=== PATIENT | female | born 1990 | race Caucasian/White ===

== ENCOUNTER 2021-12-29 11:02 | Outpatient (CLI) | payer OTHER, SELFPAY ==
[2021-12-29 13:14] LABS: Albumin* 4.5 g/dL (3.3-5.0); Chloride* 103 mmol/L (96-114)
[2021-12-29 13:15] LABS: Potassium* 4.5 mmol/L (3.6-5.1); Sodium* 137 mmol/L (135-149)
[2021-12-29 13:17] LABS: Alkaline Phosphatase* 68 U/L (40-150); Aspartate Amino Transferase* 25 U/L (12-35); Bilirubin Total* 0.6 mg/dL (0.1-1.5); Blood Urea Nitrogen* 15 mg/dL (5-24); Carbon Dioxide* 27 mmol/L (20-32); Cholesterol* 227 mg/dL (90-199); Creatinine* 0.7 mg/dL (0.5-1.5); Estimated Glomerular Filt Rate 117 ml/min; Total Protein* 7.3 g/dL (6.0-8.3)
[2021-12-29 13:18] LABS: Alanine Aminotransferase* 12 U/L (4-35); Calcium* 9.3 mg/dL (8.4-10.6); Glucose* 94 mg/dL (60-115); HDL Cholesterol* 72 mg/dL (>=50); LDL Cholesterol Calculated 138 mg/dL (<100); Triglycerides* 83 mg/dL (40-149)
== END 2021-12-29 11:03 | disposition home or self-care (01) ==
PROVIDERS: PCP Family Medicine; Visit Provider Family Medicine
DX: Z01.419 Encounter for gynecological examination (general) (routine) without abnormal findings (principal); R53.83 Other fatigue; F41.1 Generalized anxiety disorder; R45.4 Irritability and anger; Z13.6 Encounter for screening for cardiovascular disorders
CPT/HCPCS: 80053; 80061; 84443

== ENCOUNTER 2022-02-25 10:10 | Outpatient (CLI) | payer OTHER, SELFPAY ==
[2022-02-25 12:29] LABS: Hepatitis B Surface Antigen* Negative (Negative)
[2022-02-25 12:37] LABS: HIV 1/2/P24 Combo Screen* Negative (Negative)
[2022-02-25 12:46] LABS: Hepatitis C Virus Antibody* Negative (Negative)
[2022-02-26 13:53] LABS: Rapid Plasma Reagin (RPR) Non Reactive (Non Reactive)
[2022-02-27 02:34] LABS: Rubella Antibody IgG 13.2 IU/mL
== END 2022-02-25 10:11 | disposition home or self-care (01) ==
PROVIDERS: PCP Family Medicine; Visit Provider Advanced Practice Midwife
DX: Z34.81 Encounter for supervision of other normal pregnancy, first trimester (principal); Z3A.08 8 weeks gestation of pregnancy
CPT/HCPCS: 76817; 86592; 86703; 86762; 86787; 86803; 86850; 86900; 86901; 87086; 87340

== ENCOUNTER 2022-05-06 12:44 | Outpatient (CLI) | payer OTHER, SELFPAY ==
--- NOTE | 2022-05-06 13:00 | CRLHL7_ITS ---
For Patients: As a result of the Century Cures Act, medical imaging exams and procedure reports are released immediately into your electronic medical record. You may view this report before your referring provider. If you have questions, please contact your health care provider. INDICATION: Evaluate anatomy. COMPARISON: 02/25/2022 TECHNIQUE: Real time hoskins scale imaging of the fetus was performed as well as color Doppler analysis of the umbilical vessels. FINDINGS: Sonographic imaging demonstrates a single living intrauterine gestation. Fetus demonstrates a regular cardiac rate of 167 beats per minute. Fetus has a transverse position, head maternal right. The placenta lies posterior. Low-lying placenta located 1.8cm from the internal cervical os on transvaginal imaging. Amniotic fluid volume appears normal. Single deepest vertical pocket: 4.0 cm. The cervix is closed and measures 4.6 cm in length. The composite ultrasound gestational age is calculated at 19w 0d with an estimated sonographic due date of 09.30.22. The estimated weight is 285 grams which lies at the 64th %. The following biometric measurements were obtained: Biparietal diameter: 4.1 cm / 18w 3d 28th% Head circumference: 16.2 cm / 19w 0d 40th% Abdominal circumference: 14.3 cm / 19w 5d 68th% Femur length: 3.0 cm / 19w 1d 46th% The HC/AC ratio measures: 1.13 range (1.09-1.26) On anatomic survey, there is a normal appearance of the cerebral ventricles, cavum septi pellucidi, cisterna magna and cerebellum. The nose, lips, and facial profile appear normal. The cervical, thoracic and lumbar spine are well visualized and appear normal. There is a normal four-chamber heart view and the left and right ventricular outflow tracts appear normal. The diaphragm and stomach appear normal. The kidneys and bladder also appear normal. There is a normal three-vessel cord and cord insertion site. The four extremities appear normal. IMPRESSION: Concordance of clinical and sonographic dating. No intrinsic abnormalities noted on anatomic survey. Low-lying posterior placenta located 1.8cm from the internal cervical os. Dictated by Mahad Jorgensen MD @ 05/06/2022 2:33:22 PM (Electronically Signed)
== END 2022-05-06 12:45 | disposition home or self-care (01) ==
LOC: US 12:45
PROVIDERS: PCP Family Medicine; Visit Provider Obstetrics & Gynecology
DX: Z34.92 Encounter for supervision of normal pregnancy, unspecified, second trimester (principal); O44.42 Low lying placenta NOS or without hemorrhage, second trimester; Z3A.19 19 weeks gestation of pregnancy
CPT/HCPCS: 76805; 76817

== ENCOUNTER 2022-07-07 12:04 | Outpatient (CLI) | payer OTHER, BC, SELFPAY | END 2022-07-07 12:05 | disposition home or self-care (01) | PROVIDERS: PCP Family Medicine; Visit Provider Obstetrics & Gynecology | DX: O44.40 Low lying placenta NOS or without hemorrhage, unspecified trimester (principal) | CPT/HCPCS: 86592 ==

== ENCOUNTER 2022-07-07 12:07 | Outpatient (CLI) | payer OTHER, BC, SELFPAY ==
--- NOTE | 2022-07-07 12:15 | CRLHL7_ITS ---
For Patients: As a result of the Century Cures Act, medical imaging exams and procedure reports are released immediately into your electronic medical record. You may view this report before your referring provider. If you have questions, please contact your health care provider. INDICATION: Follow up low-lying placenta. TECHNIQUE: Limited transabdominal obstetrical ultrasound. FINDINGS: Single living intrauterine in transverse presentation with head toward the maternal left side. Posterior placenta. heart rate 150 beats per minute. Normal amniotic fluid. Single deepest pocket measurement 18.5 cm. Amniotic fluid volume index is normal at 18.4 cm. Close cervix measuring 4.9 cm. The placental tip is 4 cm from the cervix. IMPRESSION: Closed cervix. Posterior placenta with its tip 4 cm from the cervix. Single living intrauterine in transverse presentation. Dictated by Trenton Manriquez MD @ 07/07/2022 1:51:16 PM (Electronically Signed)
== END 2022-07-07 12:08 | disposition home or self-care (01) ==
PROVIDERS: PCP Family Medicine; Visit Provider Obstetrics & Gynecology
DX: O44.42 Low lying placenta NOS or without hemorrhage, second trimester (principal)
CPT/HCPCS: 76816

== ENCOUNTER 2022-09-02 10:45 | Outpatient (CLI) | payer OTHER, BC, SELFPAY | END 2022-09-02 10:46 | disposition home or self-care (01) | LOC: NFLDREF 09-04 09:16 | PROVIDERS: PCP Family Medicine; Referring Provider Family Medicine; Visit Provider Obstetrics & Gynecology | DX: Z34.93 Encounter for supervision of normal pregnancy, unspecified, third trimester (principal); Z3A.35 35 weeks gestation of pregnancy | CPT/HCPCS: 76816; 87081; 87653 ==

== ENCOUNTER 2022-09-21 03:30 | Inpatient (IN) | payer OTHER, BC, SELFPAY ==
[2022-09-21] VITALS (24 sets, daily range): BP systolic 115–161; BP diastolic 73–100; PULSE 57–106; RESP 16–18; TEMP 36.1–37.1; O2SAT 97–100; BMI 27.6
[2022-09-21 02:53] LABS: Basophils Absolute Auto 0.03 K/uL (0.00-0.30); Basophils Percent Auto 0.3 % (0.0-3.0); Eosinophils Absolute Auto 0.08 K/uL (0.00-0.50); Eosinophils Percent Auto 0.9 % (0.0-7.0); Hematocrit 33.1 % (33.0-51.0); Hemoglobin* 10.8 gm/dL (12.0-16.0); Immature Granulocytes Abs Auto 0.04 K/uL (0.00-0.30); Immature Granulocytes Pct Auto 0.5 %; Lymphocytes Percent Auto 25.1 % (20-44); Mean Corpuscular HGB Conc 33 gm/dL (32-36); Mean Corpuscular Hemoglobin 31 pg (26-34); Mean Corpuscular Volume 94 fL (80-100); Monocytes Percent Auto 8.8 % (0.0-11.0); Neutrophils Absolute Auto 5.63 K/uL (1.7-7.0); Neutrophils Percent Auto 64.4 % (42.0-72.0); Platelet Count* 258 K/uL (140-440); RDW Coefficient of Variation % 13.2 % (11.5-15.5); Red Blood Count 3.54 m/uL (4.00-5.20); White Blood Count* 8.75 K/uL (4.50-11.00)
[2022-09-21 02:56] LABS: Slide Review Reflex No
[2022-09-21 03:10] LABS: Fibrinogen* 382 mg/dL (200-450)
[2022-09-21] MEDS: LACTATED RINGERS 1000 ML 1,000 ML 125 ML IV ×2 (06:40→09:08)
[2022-09-21] MEDS: AMPICILLIN 2 GM in 0.9 % SODIUM CHLORIDE Mini-bag 100 ML IVPB (06:41)
[2022-09-21] MEDS: OXYTOCIN 30 unit/500 ML in NS 30 UNIT/500 ML BAG IVPB (06:43)
[2022-09-21] MEDS: CEFAZOLIN 2 GM INJ IVP (07:20)
--- NOTE | 2022-09-21 08:05 | SUR.OPER ---
PATIENT BROUGHT TO OR #5 PER CART FOR EMERGENT .? Patient positioned supine on OR #5 bed.? The perioperative?team supported arms bilaterally on arm boards.? Final approval of positioning by surgeon.? FETUS IN DISTRESS, NO TIME OUT PRIOR TO INCISION. VENOUS AND ARTERIAL BLOOD GASSES SENT W/W. MG HANSEN.
--- NOTE | 2022-09-21 08:24 | W.PM.LDBA ---
Subjective History of Present Illness Date Seen: 09/21/22 Narrative: Patient is being admitted to Labor and Delivery for VTOLAC. She is a 31 year old at 38 5/7 weeks gestation. Her full history and physical was dictated by Dr. JOHN on 09/15/22. Please see this for details. Patient came in this morning for evaluation after experiencing episode of vaginal bleeding at home. States that she woke up and went to the bathroom and saw bright red blood, she placed a pad on and she then states that she filled up the pad with menses like bleeding, denies experiencing pain. Upon evaluation at L&D, there was brown discharge, no active bright red bleeding seen. NST category 1. Cervix was found 2cm dilated and palpated membranes. Patient was admitted for IOL in the setting of concerning episode of vaginal bleeding in third trimester (that was stable), patient desiring VTOLAC. Comments: 1. Previous c/s for breech presentation at term. Followed by 2 successful 's Desires Tolac Consent signed: 06/02/2022 USN @ 36 weeks for EFW 09/02/22: Vtx. SDP 3.9cm.? EFW 2827 g, 6 lb 4 oz, 52%.? BPD 9%, HC 16%, AC 89%, FL 10%. 2. Hx of Pre-eclampsia, no medications (dx'd off liver enzymes) W/ 2nd child; possibly related to placenta abnormality not true Pre-e 3. 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 Low-lying placenta at 20 weeks. RESOLVED, 3/1 Repeat US at 28 week: 4.0 cm from internal os 6. Anxiety/Depression Zoloft 50 mg, recently decreased prior to Increased dosing made her extremely irritable Considering ADHD testing after delivery 7. GBS (+): ampicillin in labor. COVID: fully vaccinated, one booster Flu: 02/25/2022 Tdap: 07/21/2022 OB - Problem Based A/P Additional Plan (1) Desires (vaginal after ) trial: Status: Acute Plan 1. Patient admitted for IOL in the setting of VTOLAC. intolerance of labor, code white called at 7:14 am. Please see OP note for additional details. OB Result Labs Labs: Hemoglobin: 10.8 Platelets 258 Fibrinogen: 382 OB Exam Physical Exam Vital signs: Temp Pulse BP Pulse Ox 98.8 F 58 L 127/82 99 09/21/22 02:20 09/21/22 04:14 09/21/22 04:14 09/21/22 07:12 Detailed Labor and Delivery Exam Patient Gravid: Yes Dilation (cm): 2 Effacement (%): 60 Cervix position: mid Consistency: medium Tachysystole: No Contraction intensity: Mild Fetus (Single) Station: -1 Amniotic Membrane Status: intact Heart Rate Baseline: 120 Monitor Accelerations: Present Monitor Decelerations: Episodic Final Inspection Supervisor Variability: Moderate (6-25)
--- NOTE | 2022-09-21 08:28 | W.ANESCHARGE ---
Anesthesia Charges Start Date/Time Anesthesia Start Date: 09/21/22 Anesthesia Start Time: 07:17 Stop Date/Time Anesthesia Stop Date: 09/21/22 Anesthesia Stop Time: 08:20 Summary Emergency: STABLE HELPER
[2022-09-21] MEDS: fentaNYL 100 MCG/2 ML inj 50 MCG IVP ×2 (08:36→08:41)
[2022-09-21 09:22] LABS: Basophils Percent Auto 0.1 % (0.0-3.0); Eosinophils Percent Auto 0.2 % (0.0-7.0); Hematocrit 36.3 % (33.0-51.0); Hemoglobin* 11.6 gm/dL (12.0-16.0); Immature Granulocytes Pct Auto 0.3 %; Lymphocytes Percent Auto 11.5 % (20-44); Mean Corpuscular HGB Conc 32 gm/dL (32-36); Mean Corpuscular Hemoglobin 30 pg (26-34); Mean Corpuscular Volume 95 fL (80-100); Monocytes Percent Auto 3.3 % (0.0-11.0); Neutrophils Percent Auto 84.6 % (42.0-72.0); Platelet Count* 248 K/uL (140-440); RDW Coefficient of Variation % 13.1 % (11.5-15.5); Red Blood Count 3.82 m/uL (4.00-5.20); White Blood Count* 11.66 K/uL (4.50-11.00)
[2022-09-21 09:25] LABS: Slide Review Reflex No
--- NOTE | 2022-09-21 09:34 | P.NB_ITS ---
Nerve Block Nerve Block Time Seen by Provider: 08:13 Date Seen: 09/21/22 Type of block requested by surgeon for post-operative analgesia: TAP Side: bilateral Time out performed: Yes Verification of patient name: Yes Verification of date of : Yes Site marking: site marked Name of person performing procedure: Tyrell Continuous monitoring Was continuous monitoring of O2 sat, B/P, youth nutritional monitor, recorded every 15 minutes?: Yes Procedure Checklist: sterile prep, needles and gloves Ultrasound guided. Images saved: Yes Medications given in 5ml increments after negative aspiration: Marcaine %: 0.25 mL: 30 Needle gauge: 20 and Exparel mL: 10 Patient tolerated procedure well: Yes Additional comments: Needle noted adjacent to nerve Block Charges Block Charge (with Pro Fee): TAP Bilateral Use of Ultrasound Machine for Block: Yes- US Guidance/pain block
--- NOTE | 2022-09-21 09:34 | W.ANESCHARGE ---
Anesthesia Charges Start Date/Time Anesthesia Start Date: 09/21/22 Anesthesia Start Time: 07:17 Stop Date/Time Anesthesia Stop Date: 09/21/22 Anesthesia Stop Time: 08:20 Summary Emergency: MDA
[2022-09-21 09:36] LABS: Partial Thromboplastin Time* 25 Seconds (23-33)
[2022-09-21 09:37] LABS: Fibrinogen* 384 mg/dL (200-450)
[2022-09-21 10:28] LABS: Creatinine* 0.7 mg/dL (0.5-1.5); Est. Creatinine Clearance* 111.16; Estimated Glomerular Filt Rate 117 ml/min
[2022-09-21 10:29] LABS: Alanine Aminotransferase* 16 U/L (4-35); Aspartate Amino Transferase* 27 U/L (12-35); Blood Urea Nitrogen* 10 mg/dL (5-24)
--- NOTE | 2022-09-21 10:32 | PM.OBPRCCS ---
Procedure Pre-op/Post-op diagnoses: Pre-Op/Post-Op Diagnoses Preop diagnosis: 1. Intrauterine at 38 5/7 weeks 2. Nonreassuring heart rate status, remote from delivery 3. Suspected placental abruption 4. Previous x1, desiring vaginal trial of labor Postop diagnosis: 1. Same, not delivered Procedure Done: Global Procedure Details: Procedures Operation Date: 09/21/22 07:45 Actual Procedure Side Surgeon p Section Duyen Hammond MD [place] Operator: Kourtney York Estimated blood loss (mL): 600 Disposition: PACU Anesthesia type: General Complications: None Narrative: NAME OF PROCEDURE: Repeat low transverse section. ANESTHESIA: General endotracheal anesthesia. COMPLICATIONS: None. ESTIMATED BLOOD LOSS: 600 mL. DRAINS: Evangelista to gravity. As detonator maker provider I was called to be notified that L&D team was calling a code white on patient, this was called at 0714, I arrived at OR at 0717 and patient was in the OR bed, external monitor was showing FHR in the 130s, maternal heart rate was also in the 130s. Patient had already been evaluated by my partners Dr. Nora Baker and Dr. Slater who were in hospital at that time due to scheduled OR cases. Anesthesia was in the room and ready to proceed with general anesthesia. Due to inability to confidently tell if there was normal FHR, code white scenario in a very high risk patient (coming in with third trimester bleeding-significant, previous history of C/S x1, suspected placental abruption and cervix only 2cm dilated) recommendation was given to proceed with emergency delivery. FINDINGS: Live-born male infant, cephalic presentation, Apgars 7 and 8 at 1 and 5 minutes respectively. weight pending. Normal appearing uterus, tubes, and ovaries. Small dark blood clots seen on posterior uterine wall, no evident large blood clot on the placenta. PROCEDURE: Splash of Betadine was placed over the abdomen. She was draped in the dorsal supine position with a leftward tilt. Anesthesia secured airway and a Pfannenstiel skin incision was made with a scalpel along the line of the patient's previous Pfannenstiel scar. This incision was carried down to the underlying layer of fascia with the scalpel. The fascia was incised in the midline and the incision extended laterally. The rectus muscles were then in the midline. The lower uterine segment was then incised in a transverse fashion with the scalpel. Upon entry into the uterus, minimal amount of clear amniotic fluid was noted. The uterine incision was extended cephalo caudally with blunt finger fractionation. The 's head was delivered atraumatically, 2 nuchal cords reduced, followed by the remainder of the infant's body. The cord was doubly clamped and cut, and the infant was handed off the field to [facility] for evaluation. The placenta was delivered spontaneously with umbilical cord traction and fundal massage. The uterus was exteriorized and was cleared of all clots and debris. The uterine incision was reapproximated in a running locking fashion with a 0 Vicryl suture. A 2nd layer of the same suture was used to imbricate in horizontal fashion. The uterus was returned to the abdomen and small bleeding vessels from hysterotomy were managed with Chromic 2-0 in a figure of 8 manner, hemostasis secured. The gutters were irrigated and suctioned. All instruments and retractors were removed. Tika irrigated at the hysterotomy for further hemostasis. The subfascial tissues were carefully inspected and hemostasis assured. The fascia was reapproximated in a running fashion with a looped 0 Vicryl suture. The subcutaneous tissues were copiously irrigated. Hemostasis was assured. The subcutaneous fat layer was reapproximated with interrupted sutures of 3-0 Vicryl. The skin was closed in a subcuticular fashion with 4-0 Monocryl. LiquiBand and dressing were applied. The patient tolerated the procedure well. Sponge, lap, needle, and instrument counts were reported as correct x2. The patient was taken to the recovery room, awake, and in stable condition. She did receive 2 grams of IV Ancef preoperatively, 1g of TXA after placenta delivered. .
[2022-09-21] MEDS: SODIUM CHLORIDE 0.9 % (FLUSH) 10 ML SYRINGE IVF (14:04)
[2022-09-21] MEDS: KETOROLAC 30 MG/ML inj IVP ×2 (14:05→20:03)
[2022-09-21] MEDS: OXYCODONE 5 MG TABLET PO (16:16)
[2022-09-21] MEDS: ACETAMINOPHEN 500 MG TABLET 1000 MG PO (16:59)
[2022-09-21] MEDS: DOCUSATE SODIUM 100 MG CAPSULE PO (18:42)
[2022-09-22] VITALS: BP 114/74; PULSE 68; RESP 16; TEMP 36.8; O2SAT 96
[2022-09-22] MEDS: ACETAMINOPHEN 500 MG TABLET 1000 MG PO ×3 (00:50→18:06)
[2022-09-22] MEDS: OXYCODONE 5 MG TABLET PO (00:50)
[2022-09-22] MEDS: KETOROLAC 30 MG/ML inj IVP ×3 (02:04→14:19)
[2022-09-22 04:10] VITALS: BP 126/74; PULSE 68; RESP 16; TEMP 36.6; O2SAT 98
--- NOTE | 2022-09-22 07:24 | PM.OBPNCS1 ---
OB - PN: A/P Assessment and Plan (1) Desires (vaginal after ) trial: Status: Acute Plan Plan: routine postop care Comments: Assessment/Plan G 4 P 4 status post repeat , complicated by an emergency requiring general anesthesia. 1. ?Continue route PP cares 2. ?. ?May see if desired 3. ?Anticipate discharge home tomorrow or the following day per pt preference 4. Hx of depression & anxiety -continue with sertraline, is aware we can increase dose if needed -aware of options to help process trauma and for PP depression if needed 5. Hx of PP preeclampsia, BPs elevated previously. Labs also previously done, WNL. BPs now stable/WNL -will continue to monitor. OB - PN: Subj Subjective Time Seen by Provider: 07:24 Date Seen: 09/22/22 Interval history: Atiya is a 31 y.o. who was admitted to L & D for IOL for bleeding, TOLAC. ?She had a complicated by a code white requiring general anesthesia for distress. ? Patient comments: no complaints and pain well controlled [place] infant status: and doing well feeding status: exclusively Narrative: The patient feels well. ?The pain is well controlled with current medications. ?She has no new complaints. ?She is breast feeding and reports things are going well.? the patient has done well.? Vitals have been stable.? She has remained afebrile.? Has a good appetite, is tolerating a general diet. ?She is voiding without difficulty.? She is passing gas and has not had a bowel movement.? She is ambulating and denies any dizziness.? Has Small amount of rubra lochia. She is being very conscious of her mental health. Will continue her current dose of sertraline at this time, but is aware we can increase it if needed. Briefly reviewed counseling options for trauma if desired. OB - PN: Obj Exam Physical Exam: Vital signs: Temp Pulse Resp BP Pulse Ox O2 Del Method 97.8 F 68 16 126/74 98 Room Air 09/22/22 04:10 09/22/22 04:10 09/22/22 04:10 09/22/22 04:10 09/22/22 04:10 09/22/22 04:10 Narrative: VSS. Afebrile GENERAL APPEARANCE: ?normal affect, alert, no distress MOOD: ?appropriate HEENT: normocephalic, neck supple, full ROM CHEST: ?Symmetrical chest wall movement. ?Normal respiratory effort. ?Clear to auscultation HEART: ?regular rate and rhythm ABDOMEN: ?soft, non-tender. Uterine fundus is firm, at Umbilicus, Midline and is appropriate for the stage of recovery. ?Bowel sounds present. EXTREMITIES: ?normal and no edema SKIN: warm, dry. Dressing on, clean/dry/intact. No signs of infection noted. Urinary Catheter Management: Urethral: Cath placed during this visit: yes, but has since been removed by the nurse Reason for continuing: decision to DC catheter Removal date: 09/21/22 Removal time: 20:30 OB - PN: Obj Data Labs Labs: Laboratory Results - last 24 hr 09/21/22 09:11 WBC 11.66 H RBC 3.82 L Hgb 11.6 L Hct 36.3 MCV 95 MCH 30 MCHC 32 RDW Coeff of Steven 13.1 Plt Count 248 Neut % (Auto) 84.6 H Lymph % (Auto) 11.5 L Maverick % (Auto) 3.3 Eos % (Auto) 0.2 Baso % (Auto) 0.1 Neut # (Auto) 9.90 H Lymph # (Auto) 1.30 Maverick # (Auto) 0.40 Eos # (Auto) 0.00 Baso # (Auto) 0.00 APTT 25 Fibrinogen 384 BUN 10 Creatinine 0.7 Estimated Creat Clear 111.16 Estimated GFR 117 AST 27 ALT 16
[2022-09-22 09:00] VITALS: BP 120/80; PULSE 68; RESP 16; TEMP 36.6; O2SAT 98
[2022-09-22] MEDS: DOCUSATE SODIUM 100 MG CAPSULE PO (10:28)
[2022-09-22 12:01] VITALS: BP 123/75; PULSE 62; RESP 16; TEMP 36.8; O2SAT 97
[2022-09-22 16:00] VITALS: BP 106/75; PULSE 82; RESP 18; TEMP 36.6; O2SAT 98
[2022-09-22] MEDS: SERTRALINE 50 MG TABLET PO (20:23)
[2022-09-22 20:35] VITALS: BP 113/78; PULSE 68; RESP 18; TEMP 36.5; O2SAT 98
[2022-09-22] MEDS: IBUPROFEN 600 MG TABLET PO (21:43)
[2022-09-23 01:05] VITALS: BP 123/80; PULSE 67; RESP 16; O2SAT 96
[2022-09-23] MEDS: ACETAMINOPHEN 500 MG TABLET 1000 MG PO ×4 (01:08→22:22)
[2022-09-23] MEDS: IBUPROFEN 600 MG TABLET PO ×3 (04:29→20:24)
[2022-09-23 04:31] VITALS: BP 120/82; PULSE 65; RESP 16; O2SAT 97
--- NOTE | 2022-09-23 07:56 | PM.OBPNCS1 ---
OB - PN: A/P Assessment and Plan (1) Status post emergency section: Problem details: placental abruption, bradycardia Status: Acute (2) Lactating mother: Status: Acute Plan day: 2 Plan: routine postop care Comments: May see if desired. Anticipate discharge tomorrow, 09/24. OB - PN: Subj Subjective Date Seen: 09/23/22 Interval history: Atiya is a 31 y.o. who was admitted to L & D for IOL for bleeding, TOLAC. ?She had a complicated by a code white requiring general anesthesia for distress. ? Narrative: Atiya is a 31 y.o. who was admitted to L & D for induction due to 3rd episode of vaginal bleeding. ?She had an uncomplicated emergency .?The patient feels well. ?The pain is well controlled with current medications. ?She has no new complaints. ?She is breast feeding and reports things are going well.? the patient has done well.? Vitals have been stable.? She has remained afebrile.? Has a good appetite, is tolerating a general diet. ?She is voiding without difficulty.? She is passing gas and has had a bowel movement.? She is ambulating and denies any dizziness.? Has scant amount of rubra lochia. She was undecided if she wanted to discharge home today but has elected to stay. She has 3 very active boys at home. OB - PN: Obj Exam Physical Exam: Vital signs: Temp Pulse Resp BP Pulse Ox O2 Del Method 97.7 F 65 16 120/82 97 Room Air 09/22/22 20:35 09/23/22 04:31 09/23/22 04:31 09/23/22 04:31 09/23/22 04:31 09/23/22 04:31 Narrative: GENERAL APPEARANCE:? normal affect, alert, no distress MOOD:? appropriate CHEST:? clear to auscultation HEART:? regular rate and rhythm ABDOMEN:? soft, non-tender the uterine fundus is at Umbilicus, Midline and is appropriate for the stage of recovery. PERINEUM:? mild edema of the perineum EXTREMITIES:? normal and edema Incision: Healing well, no surrounding erythema, abnormal induration or discharge Urinary Catheter Management: Urethral: Cath placed during this visit: yes, but has since been removed by the nurse Reason for continuing: decision to DC catheter Removal date: 09/21/22 Removal time: 20:30
[2022-09-23 08:03] VITALS: BP 118/85; PULSE 63; RESP 16; TEMP 36.8; O2SAT 98
[2022-09-23] MEDS: DOCUSATE SODIUM 100 MG CAPSULE PO (08:06)
[2022-09-23 13:00] VITALS: BP 123/81; PULSE 74; RESP 16; TEMP 36.4; O2SAT 99
[2022-09-23 15:58] VITALS: BP 109/74; PULSE 71; RESP 16; TEMP 36.9; O2SAT 99
[2022-09-23] MEDS: SERTRALINE 50 MG TABLET PO (20:24)
[2022-09-23 20:45] VITALS: BP 113/75; PULSE 67; RESP 18; TEMP 36.4; O2SAT 97
[2022-09-24 01:44] VITALS: BP 123/85; PULSE 64; RESP 16; O2SAT 97
[2022-09-24] MEDS: IBUPROFEN 600 MG TABLET PO ×2 (02:01→08:31)
[2022-09-24] MEDS: ACETAMINOPHEN 500 MG TABLET 1000 MG PO (05:05)
[2022-09-24 05:06] VITALS: BP 125/78; PULSE 63; RESP 16; TEMP 36.5; O2SAT 100
--- NOTE | 2022-09-24 07:18 | PM.OBDSCS1 ---
DS: Providers Provider Time Seen by Provider: 07:19 Date Seen: 09/24/22 Date of admission: 09/21/22 03:30 Primary care physician: Kemi Corbett MD Admitting Clinician: Subha Johnston MD Attending Physician on discharge: Subha Johnston MD Date of Discharge: 09/24/22 DS: Diagnosis Discharge Diagnosis (1) Status post emergency section: Status: Acute Problem details: placental abruption, bradycardia (2) Lactating mother: Status: Acute (3) Uterine scar from previous delivery affecting : Status: Acute (4) Generalized anxiety disorder: Status: Acute Exam Narrative: Exam Narrative: VSS. ?Afebrile GENERAL APPEARANCE: ?normal affect, alert, no distress MOOD: ?appropriate HEENT: normocephalic, neck supple, full ROM CHEST: ?Symmetrical chest wall movement. ?Normal respiratory effort. ?Clear to auscultation HEART: ?regular rate and rhythm ABDOMEN: ?soft, non-tender. Uterine fundus is firm, at Umbilicus, Midline and is appropriate for the stage of recovery. ?Bowel sounds present. EXTREMITIES: ?normal and no edema SKIN: warm, dry. ? ?Incision clean/dry/well approximated. ?No signs of infection noted. Const: Vital Signs, click to edit/add: Vital Signs - 24 hr 09/23/22 08:03 09/23/22 13:00 09/23/22 15:58 Temperature 98.2 F 97.6 F 98.4 F Pulse Rate [Left P ulse Oximeter] 63 74 71 Respiratory Rate 16 16 16 Blood Pressure [Ri ght Arm] 118/85 123/81 109/74 Pulse Oximetry 98 99 99 Oxygen Delivery Me thod Room Air Room Air Room Air 09/23/22 20:45 09/24/22 01:44 09/24/22 05:06 Temperature 97.5 F L 97.7 F Pulse Rate [Left P ulse Oximeter] 67 64 63 Respiratory Rate 18 16 16 Blood Pressure [Ri ght Arm] 113/75 123/85 125/78 Pulse Oximetry 97 97 100 Oxygen Delivery Me thod Room Air Room Air Room Air OB - DS: Summary Hospital Course Hospital Course: Atiya is a 31 y.o. G 4 P 4 who was admitted to L & D for bleeding, TOLAC. ?She had an uncomplicated emergency . ? The patient feels well. ?The pain is well controlled with current medications. ?She has no new complaints. ?She is breast feeding and reports things are going well.? the patient has done well.? Vitals have been stable.? She has remained afebrile.? Has a good appetite, is tolerating a general diet. ?She is voiding without difficulty.? She is passing gas and has had a bowel movement.? She is ambulating and denies any dizziness.? Has Small amount of rubra lochia. She is planning condoms, partner vasectomy for prevention. She has a history of anxiety, and is currently stable on sertraline. She is aware of the option of therapy and increasing mediations if needed , especially if she needs help processing her . Problems: none plan: Discharge home with baby. Follow up in 2 weeks and 6 weeks. , may follow up with if needed Anxiety, stable on sertraline. -therapy and increase medication dose if needed Peripartum Data Procedures: Procedures Operation Date: 09/21/22 07:45 Actual Procedure Side Surgeon p Section Duyen Hammond MD complications: none [place] Gender: Male Infant Discharge Plan: Home Status at Discharge Functional status at discharge: independent ambulation Overall status at discharge: patient is progressing back to baseline Time Spent with Patient Time attestation: Total time spent providing and/or coordinating discharge services: Time spent: Less than 30 minutes Discharge Plan Discharge Disposition: Home, Self-Care Date of Admission: 09/21/22 03:30 Attending Provider on Discharge: Nita Flanagan Primary Care Provider: Kemi Corbett Condition: Stable Anticipated Discharge Date/Time: 09/24/22 11:00 Discharge Medications: New docusate sodium 100 mg Capsule 100 mg PO BID PRNQty: 100 0RF Rx Instructions: Take 1 cap 1-2 times a day as needed for constipation ibuprofen 600 mg Tablet 600 mg PO Q6H PRN (Reason: Pain) Qty: 60 0RF oxycodone 5 mg Tablet 5 - 10 mg PO Q4H PRN (Reason: Pain) Qty: 20 0RF Continued prenat.vits,kalpana,hqy-tnss-trvbr Tablet 1 tab PO QDAY Probiotic 3 billion cell capsule 3,000 mmu cells PO QDAY Rx Instructions: administer with a meal omeprazole 40 mg capsule,delayed release(DR/EC) 40 mg PO BID PRN (Reason: heartburn) Qty: 180 1RF magnesium gluconate [Mag-G] 27 mg magnesium (500 mg) tablet 27 mg PO QDAY sertraline 50 mg tablet See Rx Instructions .ROUTE .COMPLEX Qty: 30 3RF Dose Instruction: TAKE 1 TABLET BY MOUTH DAILY Rx Instructions: TAKE 1 TABLET BY MOUTH DAILY Discontinued ondansetron HCl 4 mg tablet 4 mg PO Q6H PRN (Reason: nausea and vomiting) Qty: 30 4RF Unisom (doxylamine) 25 mg tablet 12.5 mg PO QHS PRN Discharge Orders: Discharge Order (Routine); Ordered 09/24/22 Ordered By: Nita Flanagan Patient Education: OB Over the Counter Medication Information, OB /Breast Feeding Additional Instructions: Follow up in 2 weeks and 6 weeks No driving while taking oxycodone, must also be able to comfortably slam on the breaks in an emergency. Activity Level: Activity as Tolerated Discharge Diet: Regular Follow Up Appointments: Kemi Corbett MD [Primary Care Provider] - Forms: [facility] Info Instructions
[2022-09-24 08:30] VITALS: BP 125/87; PULSE 80; RESP 16; O2SAT 98
[2022-09-24] MEDS: DOCUSATE SODIUM 100 MG CAPSULE PO (08:31)
== END 2022-09-24 11:10 | disposition home or self-care (01) | DRG 786 ==
LOC: OB OUT 04:02 → OB 04:02
PROVIDERS: Obstetrics & Gynecology; Admitting Provider Obstetrics & Gynecology; PCP Family Medicine; Visit Provider Obstetrics & Gynecology
PROC: 10D00Z1 Extraction of Products of Conception, Low, Open Approach (ICD-10-PCS; CPT 59514; principal; 2022-09-21 07:30)
DX: O34.211 Maternal care for low transverse scar from previous cesarean delivery (principal); O45.93 Premature separation of placenta, unspecified, third trimester; O76 Abnormality in fetal heart rate and rhythm complicating labor and delivery; O99.824 Streptococcus B carrier state complicating childbirth; O99.344 Other mental disorders complicating childbirth; F41.9 Anxiety disorder, unspecified; F32.A Depression, unspecified; Z37.0 Single live birth; Z3A.38 38 weeks gestation of pregnancy
CPT/HCPCS: 01961; 36415; 76942; 82565; 84450; 84460; 84520; 85025; 85384; 85730; 86850; 86900; 86901; 88307; 99140; A9270; C9290; J0290; J0330; J0690; J1100; J1885; J2370; J2405; J2590; J2704; J3010; J3490; J7120

== ENCOUNTER 2024-12-28 12:03 | Outpatient (CLI) | payer BC, SELFPAY ==
--- NOTE | 2024-12-28 12:15 | CRLHL7_ITS ---
For Patients: As a result of the Cures Act, medical imaging exams and procedure reports are released immediately into your electronic medical record. You may view this report before your referring provider. If you have questions, please contact your health care provider. OB ULTRASOUND INDICATION: Dating and viability. TECHNIQUE: Real time hoskins scale imaging of the fetus was performed. Transvaginal imaging performed. LMP: 10/31/2024. LANDON by LMP: 08/07/2025. GA: 8 w, 2 d. Previous US: No. CRL: 2.1 cm. 8 w 5 d. LANDON: 08/04/2025. FHR: 173 BPM. Gestational sac: 3.9 cm. Appears within normal limits. Yolk sac: 3.0 mm. Appears within normal limits. Right ovary: 2.6 x 3.3 x 2.0 CL. Left ovary: N/V. IMPRESSION: 1. Single living intrauterine measuring 8 weeks 5 days and sonographic due date 08/04/2025. 2. Corpus luteal cyst right ovary measures 2.3 cm. Mahad Jorgensen M.D. Diagnostic Radiologist [email or web address] ELO/Dictated by: Mahad Jorgensen MD @ 12/28/2024 6:41:00 PM (Electronically Signed)
== END 2024-12-28 12:04 | disposition home or self-care (01) ==
PROVIDERS: PCP Family Medicine; Visit Provider Registered Nurse
DX: Z34.91 Encounter for supervision of normal pregnancy, unspecified, first trimester (principal); O34.81 Maternal care for other abnormalities of pelvic organs, first trimester; N83.11 Corpus luteum cyst of right ovary; Z3A.08 8 weeks gestation of pregnancy
CPT/HCPCS: 76817; 82565; 82570; 83021; 84156; 84450; 84460; 84520; 86592; 86703; 86704; 86706; 86762; 86787; 86803; 86850; 86900; 86901; 87086; 87340; 87491; 87591

== ENCOUNTER 2025-01-23 10:22 | Outpatient (CLI) | payer BC, SELFPAY | END 2025-01-23 10:23 | disposition home or self-care (01) | LOC: NFLDREF 01-29 16:16 | PROVIDERS: PCP Family Medicine; Referring Provider Family Medicine; Visit Provider Registered Nurse | DX: Z87.59 Personal history of other complications of pregnancy, childbirth and the puerperium (principal) | CPT/HCPCS: 82570; 84156 ==

== ENCOUNTER 2025-03-13 10:40 | Outpatient (CLI) | payer BC, SELFPAY | END 2025-03-13 10:41 | disposition home or self-care (01) | LOC: US 10:40 | PROVIDERS: PCP Family Medicine; Visit Provider Obstetrics & Gynecology | DX: O09.522 Supervision of elderly multigravida, second trimester (principal); Z3A.19 19 weeks gestation of pregnancy | CPT/HCPCS: 76811 ==